=== PATIENT | male | born 1970 | race Caucasian/White ===

== ENCOUNTER 2017-09-13 05:24 | Observation (INO) ==
--- NOTE | 2017-09-12 12:45 | MH ---
cc: Apollo Luther MD DATE OF ADMISSION: 09/13/2017 DATE OF ADMISSION FOR SURGERY: 09/13/2017 ADMITTING DIAGNOSIS: Osteoarthritic degeneration of the right knee, now being admitted for right total knee arthroplasty. HISTORY OF PRESENT ILLNESS: This pleasant 47-year-old male is being admitted today for a right total knee arthroplasty due to severe painful osteoarthritic degeneration of the right knee. OTHER PAST MEDICAL HISTORY: He has had heart problems for which he has had stents put in and cardiac catheterization. He is currently taking Plavix, which was stopped 5 days before surgery. He also has a history of hypertension. REVIEW OF SYSTEMS: Noncontributory. FAMILY HISTORY: Noncontributory. MEDICATIONS: He takes atorvastatin, triamterene, ramipril, and metoprolol. SOCIAL HISTORY: He does not smoke and occasionally drinks alcohol. 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 ALLERGIES: ALLERGIC TO ORAL AND IV DYES. PHYSICAL EXAMINATION: GENERAL: We find a 47-year-old male, well-developed, well-nourished and oriented x 3, complaining of pain in his right knee. VITAL SIGNS: Blood pressure 144/82, pulse 64 and regular, respirations 16, temperature 98.2, pulse oximetry 97% on room air. EYES: PERRLA, EOMI. Ears, nose and throat are clear. NECK: Supple. LUNGS: Clear. HEART: Regular rate. ABDOMEN: Soft, positive bowel sounds, nontender. EXTREMITIES: Reveal the right knee to have genu valgus deformity of 10 degrees. Crepitance throughout range of motion. Neurovascularly intact to his toes. Antalgic gait. IMPRESSION: Severe painful osteoarthritic degeneration with valgus deformity, right knee. PLAN: Admission for right total knee arthroplasty today. The patient was given prescription for postoperative pain control in the office and plans on going home after the surgical stay in the hospital. MD MARYSOL Fournier/JANINA , 12:31 PM , 12:44 PM
[2017-09-13] MEDS ORDERED: Sodium Chlor 0.9% Inj 40 ML, Bupivacaine Liposo PF 1.3% Inj 20 ML P-ARTICULR SCH ×2 (06:45)
[2017-09-13] MEDS ORDERED: Metoprolol Tartrate 25 MG Tablet PO SCH (06:45)
[2017-09-13] MEDS ORDERED: Bupivacaine Liposomal PF 1.3% Inj 20 ML Vial ONE (06:52)
[2017-09-13] MEDS ORDERED: Sodium Chlor 0.9% Inj 250 ML ONE (06:53)
[2017-09-13] MEDS ORDERED: Vancomycin Inj 1 GM/200 ML PIGGYBACK IV.SIG SCH (07:00)
[2017-09-13] MEDS ORDERED: ceFAZolin 2 GM Premix Inj 2 GM/50 ML PIGGYBACK IV.SIG SCH (07:00)
[2017-09-13] MEDS ORDERED: TRANEXAMIC ACID IV.SIG SCH ×2 (07:00→09:59)
[2017-09-13] MEDS: Dexamethasone Inj 20 MG/5 ML Vial ONE ×2 (07:00→18:06)
[2017-09-13] MEDS ORDERED: Sodium Chlor 0.9% Inj 500 ML IV.SIG SCH (07:00)
[2017-09-13] MEDS ORDERED: SODIUM CHLOR 0.9% IV.SIG SCH ×2 (07:00→09:59)
[2017-09-13] MEDS ORDERED: Midazolam Inj 5 MG/ML 1 ML Vial IV.SIG SCH (07:00)
[2017-09-13] MEDS ORDERED: MULTIVIT MIN FOLIC VIT K LYCOP PO SCH (09:00)
[2017-09-13] MEDS: Bupivacaine PF 0.25% Inj 30 ML Vial ONE ×2 (09:15→18:07)
[2017-09-13] MEDS ORDERED: Bisacodyl 10 MG Supp RECTAL PRN (10:59)
[2017-09-13] MEDS ORDERED: Tranexamic Acid Inj 1,000 MG in Sodium Chlor 0.9% Inj 100 ML IV.SIG ONE (10:59)
[2017-09-13] MEDS ORDERED: Morphine Inj 4 MG/ML Vial IV.PUSH PRN (10:59)
[2017-09-13] MEDS ORDERED: Post-op Orders (for Pharmacy) OTHER STA (10:59)
--- NOTE | 2017-09-13 11:16 | MP ---
cc: Apollo Luther MD DATE OF OPERATION: 09/13/2017 PREOPERATIVE DIAGNOSIS: Osteoarthritic degeneration of valgus deformity, right knee. POSTOPERATIVE DIAGNOSIS: Osteoarthritic degeneration of valgus deformity, right knee. SURGERY PERFORMED: Right total knee arthroplasty using Consensus components, size 5 femur, 4 tibia, 10 insert and size 2 patella with 2 batches of DePuy cement. SURGEON: Apollo Luther MD ANESTHESIA: General intubation. MANAGER STATISTICAL PROGRAMMING: STEVE Butler DESCRIPTION OF PROCEDURE: After successful induction of anesthesia, the patient is placed on the operating room table in the supine position. The knee is prepped and draped in the usual manner. A tourniquet is inflated at the upper thigh and set to 300 mmHg pressure after exsanguination of the lower extremity. A longitudinal incision is made extending from 3 inches proximal to the superior pole of the patella, across the patella in longitudinal fashion, and down past the insertion of the tibial tubercle into the proximal tibia. The incision is carried down through subcutaneous tissue along the medial aspect of the patella and retinaculum, down through the capsule to expose the knee joint. The patella and patellar tendon are freed up enough to allow the patella to be inverted and retracted off the lateral side of the knee joint. The knee joint is left exposed. Small osteophytes are removed. All soft tissue is removed to allow proper position of the femoral and tibial cutting jig guide. The first femoral jig is then inserted along the distal end of the femur after first measuring to decide whether this is a small, medium, or large component. The notch is then drilled and the tibial cutting guide inserted into the femoral cutting guide, along with the ankle brace to allow for proper measurement of the tibial cutting surface that needed to be resected. Pins are inserted into the tibial cutting jig and femoral cutting jig to hold them in place. An oscillating saw is then used to resect the surface of the tibia. The surface of the tibia is then completely removed using sharp and blunt dissection. The anterior and posterior cuts of the femur are then made as well using an oscillating saw through the cutting guide. All guides are then removed and the varus/valgus angulation cutting guide applied to the femur for proper measurement of the proper amount of valgus. The anterior cutting guide for the femur is then inserted at the anterior femoral cuts made. Next, the first block trial is inserted into the femur to allow for proper condyle drill holes to be made which are then made followed by removal of the bone between the condyles using an oscillating saw as well as the bone removed at the most posterior surface of the condyle. After this, this guide is removed and the chamfer cuts made using the chamfer cutting guide from both anterior and posterior. Next, the femoral trial is then inserted, the tibial surface reflected anterior to expose the tibial surface and a tibial stem guide is inserted after first measuring for a standard, standard plus, large, or large plus surface to be used. After the stem is impacted the trial tibial surface is applied followed by the trial meniscal components. After full range of motion is found with the appropriate length meniscal components varying the patella is prepared by resecting the posterior aspect of the patella using an oscillating saw, inserting a trial. The trial is then removed and the cruciate cutting guide applied using the bur to cut the cruciate cuts. After cruciate cuts are made all trials are removed. The wound is irrigated copiously with antibiotic solution and Water Pik and the actual components inserted into place using the aforementioned components. After the cement has hardened and the components are found to have full range of motion with no instability, the tourniquet is deflated, total tourniquet time being 57 minutes at 300 mmHg pressure. The wound again is irrigated copiously with antibiotic solution, meticulous hemostasis achieved. Then, 120 mL of mixture of Exparel, normal saline and 0.25% Marcaine plain was instilled around the knee joint for extra pain control. Deep fascia proximally with running #2 Quill. Subcutaneous tissue approximated using interrupted running 2-0 and 4-0 Monocryl suture and Prineo dressing and knee immobilizer. No drain utilized. The patient tolerated the procedure well and left the operating room in satisfactory condition. ESTIMATED BLOOD LOSS: 100 mL. COUNTS: Sponge and suture counts were correct. COMPONENTS: The components used were Consensus components, size 5 femur, 4 tibia, 10 insert and size 2 patella with 2 batches of DePuy cement. STEVE Butler was present during the entire procedure to include the patient positioning and the procedure. The medical necessity of the nurse practitioner, financial planning assistant was indicated in this case due to the surgical complexity of the case itself. During the surgical case, the surgical aides teacher was working the back table while my rn medical surgical, STEVE was directly assisting me. JMD MARYSOL Syed/JANINA , 10:56 AM , 11:15 AM
[2017-09-13] MEDS ORDERED: fentaNYL Citrate Inj 100 MCG/2 ML Ampul ONE ×2 (11:19→11:20)
[2017-09-13] MEDS ORDERED: Neostigmine Inj 5 MG/5 ML Syringe IV.PUSH ONE (12:00)
[2017-09-13] MEDS ORDERED: Lidocaine PF 1% Inj 5 ML Syringe INFILTRATN ONE (12:00)
[2017-09-13] MEDS ORDERED: Glycopyrrolate Inj 1 MG/5 ML Syringe IV.PUSH ONE (12:00)
--- NOTE | 2017-09-13 12:17 | XR ---
EXAM DATE: 09/13/2017 12:14 PM EDT AGE/SEX: 47 years / Male INDICATIONS: Post op right total knee replacement. CLINICAL DATA: This is the patient's initial encounter. Patient reports that signs and symptoms have been present for 1 day and indicates a pain score of 0/10. MEDICAL/SURGICAL HISTORY: None. None. COMPARISON: No prior exams available for comparison. FINDINGS: 2 images from the OR have been submitted. There is a total knee prosthesis in place. The prosthetic c omponents are well placed. No fracture is seen. There is some air within the joint space which is an expected postoperative finding. CONCLUSION: Successful total knee replacement. Electronically signed by: Gopi Norman MD 09/13/2017 12:16 PM EDT
--- NOTE | 2017-09-13 14:35 | P.CON ---
History of Present Illness Service: [facility] Consult date: 09/13/17 Requesting Physician: Roxanne Luther Reason for Consult: Assist with Medical Management Primary Care Provider: No Primary Care Physician Family Provider: No Primary Care Physician Chief Complaint: Right Knee Pain History of Present Illness: Patient is a 47-year-old male with primary medical history of HTN, HLD, Afib, [place] , CAD with stent placements who came in the hospital for elective surgery by Dr. Luther. Patient underwent right total knee arthroplasty due to severe painful osteoarthritic degeneration of the right knee. Ambulated with PT, discomfort and pain RLE manageable. Denies SOB/ dyspnea. Denies chest pain, palpitations, headaches, dizziness. Denies fevers, chills, n/v/d. Denies hematuria, dysuria. Review of Systems All other systems reviewed negative except as stated in HPI [facility] - History History Provided By: Patient - Medical History Medical History: Medical History (Last Reviewed 09/13/17 @ 06:44 by Cheryl Edward) ACL injury tear Asthma Atrial fibrillation High cholesterol Hypertension Myocardial infarction - Surgical History Surgical History: Surgical History (Last Reviewed 09/13/17 @ 06:44 by Cheryl Edward) H/O arthroscopy of right knee H/O heart artery stent Hx of cardiac cath Hx of tympanostomy tubes - Family History Family History: Family History (Last Updated 09/13/17 @ 15:41 by STEVE Wilson) Other Family history of acute myocardial infarction Family history of diabetes mellitus Family history of hypertension - Tobacco History Second Hand Smoke Exposure: No Tobacco Use In Past 30 Days: No Smoking Status: Former smoker - Alcohol History How Often Do You Have a Drink Containing Alcohol: 2 to 3 times a week - Substance Use History Substance History: No History of Abuse - Travel History Recent Travel in the [place] Within the Last 8 Weeks: No Recent Travel Out of the Country Within the Last 8 Weeks: No Medications and Allergies Active Medications: Active Medications Hydrocodone Bitart/Acetaminophen (Coalgate 7.5/325) 1 tab PO Q4H PRN PRN Reason: PAIN LESS THAN 5 ON SCALE Hydrocodone Bitart/Acetaminophen (Coalgate 7.5/325) 2 tab PO Q6H PRN PRN Reason: PAIN SCALE 5 TO 10 Al Hydroxide/Mg Hydroxide (Milk Of Magnesia Liq) 30 ml PO BID PRN PRN Reason: Mild Constipation Atorvastatin Calcium (Lipitor) 80 mg PO DAILY [facility] Bisacodyl (Dulcolax Supp) 10 mg RECTAL DAILY PRN PRN Reason: SEVERE CONSITIPATION Tranexamic Acid 1,061 mg/ (Sodium Chloride) 110.61 mls @ 200 mls/hr IV.SIG ONCE [facility] Stop: 09/14/17 06:59 Last Admin: 09/13/17 08:45 Dose: 200 mls/hr Tranexamic Acid 1,061 mg/ (Sodium Chloride) 110.61 mls @ 200 mls/hr IV.SIG ONCE [facility] Stop: 09/14/17 09:58 Vancomycin/Sodium Chloride (Vancomycin Inj) 1 gm in 200 mls @ 200 mls/hr IV.SIG TIPPLE GREASER [facility] Stop: 09/17/17 06:59 Last Admin: 09/13/17 07:25 Dose: 200 mls/hr Cefazolin Sodium 1,000 mg/ (Sodium Chloride) 100 mls @ 200 mls/hr IV.SIG Q6H [facility] Stop: 09/14/17 02:29 Last Admin: 09/13/17 13:56 Dose: 200 mls/hr Lactated Ringer's (Lr 1000 Ml Inj) 1,000 mls @ 80 mls/hr IV.CONT .[id number] [facility] Last Admin: 09/13/17 11:45 Dose: 80 mls/hr Lactulose (Lactulose Liq) 30 ml PO DAILY PRN PRN Reason: SEVERE CONSITIPATION Metoprolol Succinate (Toprol Xl) 25 mg PO DAILY [facility] Metoprolol Tartrate (Lopressor) 25 mg PO TIPPLE GREASER [facility] Stop: 09/16/17 06:43 Last Admin: 09/13/17 07:21 Dose: Not Given Miscellaneous Information ([facility]) 1 each OTHER UNSCH PRN PRN Reason: SEE LABEL COMMENTS Stop: 09/14/17 11:20 Morphine Sulfate (Morphine Inj) 2 mg IV.PUSH Q3H PRN PRN Reason: BREAKTHROUGH PAIN Multivitamins/Minerals (Theragran-M) 1 tab PO BID [facility] Stop: 11/12/17 20:59 Ondansetron HCl (Zofran Odt) 4 mg PO Q6H PRN PRN Reason: NAUSEA OR VOMITING Ramipril (Altace) 10 mg PO BID [facility] Senna/Docusate Sodium (Mely-Colace) 1 tab PO BID [facility] Sennosides (Senokot) 17.2 mg PO BID PRN PRN Reason: Moderate Constipation Sodium Chloride (Ns Flush) 2 ml IV.FLUSH BID [facility] Sodium Chloride (Ns Flush) 2 ml IV.FLUSH PRN PRN PRN Reason: FLUSH AFTER USING IV ACCESS Triamterene/HCTZ (Maxzide 37.5 Mg-25 Mg) 1 tab PO DAILY [facility] Allergies Allergy/AdvReac Type Severity Reaction Status Date / Time Iodinated Contrast- Oral and Allergy Severe Flushing Verified 09/06/17 08:21 IV Dye [Contrast] Home Medications Medication Instructions Recorded Confirmed Type aspirin [Aspir-Low] 81 mg PO DAILY 09/06/17 09/13/17 History atorvastatin 80 mg PO DAILY 09/06/17 09/13/17 History clopidogrel 75 mg PO DAILY 09/06/17 09/13/17 History metoprolol succinate 25 mg PO DAILY 09/06/17 09/13/17 History qfavdtps-bep-amete-vit K-lycop 1 tab PO DAILY 09/06/17 09/13/17 History [Men's Multivitamin] ramipril 10 mg PO BID 09/06/17 09/13/17 History triamterene-hydrochlorothiazid 1 tab PO DAILY 09/06/17 09/13/17 History Physical Exam Vital signs: Vital Signs 09/13/17 06:04 09/13/17 06:26 09/13/17 08:15 Temperature 98.3 F Pulse Rate 52 L 56 L 57 L Respiratory Rate 18 22 Blood Pressure 155/90 H 125/78 Pulse Oximetry 99 98 96 09/13/17 08:18 09/13/17 11:15 09/13/17 11:30 Temperature 98.1 F Pulse Rate 53 L 60 52 L Respiratory Rate 16 16 Blood Pressure 119/69 116/59 L Pulse Oximetry 96 97 09/13/17 11:45 09/13/17 12:00 09/13/17 12:30 Temperature Pulse Rate 52 L 50 L 56 L Respiratory Rate 16 16 16 Blood Pressure 115/59 L 119/59 L 114/74 Pulse Oximetry 97 96 95 09/13/17 13:00 Temperature Pulse Rate 58 L Respiratory Rate 16 Blood Pressure 117/61 Pulse Oximetry Intake & Output 09/12/17 09/13/17 09/13/17 18:59 06:59 18:59 Intake Total 2300 / 2300 Output Total 225 / 225 Balance 2074 / 2074 Weight 106.1 kg Intake: Anesthesia Amount 2300 / 2300 Output: Urine 125 / 125 Estimated Blood Loss 100 / 100 Other: Weight On Admission 106.1 kg Narrative: GENERAL: This is a well-nourished, well-developed patient, in no apparent distress. SKIN: Warm and dry HEENT: Normocephalic. Pupils equal round and reactive. Nose without bleeding. Airway patent. NECK: Trachea midline. CARDIOVASCULAR: Regular rate and rhythm without murmurs, gallops, or rubs. RESPIRATORY: Clear to auscultation. Breath sounds equal bilaterally. No wheezes , rales, or rhonchi. GASTROINTESTINAL: Abdomen soft, non-tender, nondistended. Bowel Sounds normoactive x4. MUSCULOSKELETAL: Extremities without clubbing, cyanosis. RLE trace edema, sabas wrap. NEUROLOGICAL: Awake and alert. No focal neuro deficit. Moves all extremities. Normal speech. Assessment and Plan - Plan Patient is a 47-year-old male with primary medical history of HTN, HLD, Afib, [place] , CAD with stent placements who came in the hospital for elective surgery by Dr. Luther Right knee OA S/P Right Total Knee Arthroplasty, DR. Luther, 09/13/17 -Orthopedic surgeon following -Pain management with bowel regimen -PT eval and treat HTN HLD -Continue home medications ramipril, triamterene/HTZ, metoprolol -Monitor BP Trend CAD, stents placement 2011 Hx [place] Afib, chronic, rate controlled -On plavix/ ASA previously, held x 5 days prior to surgery -Will restart POD 1 -Monitor DVT prop Code Status: Full Code Discussed Condition With: Patient, nursing Discharge Planning: DC disposition by orthopedic sx
[2017-09-13] MEDS: Ramipril 5 MG Capsule PO SCH ×2 (16:48→21:10)
[2017-09-13] MEDS: Triamterene/HCTZ 37.5 MG/25 MG Tablet PO SCH (16:48)
[2017-09-13] MEDS: Senna/Docusate Sodium 8.6/50 MG Tablet PO SCH (21:10)
[2017-09-13] MEDS: Multivitamin/Minerals Therapeutic Tablet PO SCH (21:10)
[2017-09-14 07:32] LABS: Hematocrit 34.6 % (39.0-51.0)
[2017-09-14] MEDS: Multivitamin/Minerals Therapeutic Tablet PO SCH (08:23)
[2017-09-14] MEDS: Senna/Docusate Sodium 8.6/50 MG Tablet PO SCH (08:23)
[2017-09-14] MEDS: Triamterene/HCTZ 37.5 MG/25 MG Tablet PO SCH (08:23)
[2017-09-14] MEDS: Ramipril 5 MG Capsule PO SCH (08:24)
--- NOTE | 2017-09-14 12:03 | P.PNIM ---
Subjective Interval history: The patient was resting comfortably in bed. He says his pain is a 3 out of 10 in severity. He has been eating. He feels tightness in his right knee. He says the tape is a little bit bothersome. He has not had a bowel movement today. No acute concerns. Physical Exam Vital signs: Vital Signs 09/13/17 12:30 09/13/17 13:00 09/13/17 14:00 Temperature Pulse Rate 56 L 58 L 58 L Respiratory Rate 16 16 16 Blood Pressure 114/74 117/61 118/64 Pulse Oximetry 95 96 09/13/17 16:00 09/13/17 19:30 09/13/17 20:00 Temperature 97.8 F 98.6 F Pulse Rate 62 68 68 Respiratory Rate 16 18 20 Blood Pressure 124/72 137/77 131/65 Pulse Oximetry 96 96 95 09/14/17 00:00 09/14/17 07:00 09/14/17 08:00 Temperature 97.8 F 98.0 F 98.0 F Pulse Rate 68 61 61 Respiratory Rate 17 16 16 Blood Pressure 120/59 L 116/63 116/63 Pulse Oximetry 93 L 98 98 Intake & Output 09/13/17 09/14/17 09/14/17 18:59 06:59 18:59 Intake Total 3760 / 3760 1200 / 1200 Output Total 225 / 225 Balance 3535 / 3535 1200 / 1200 Weight 106.1 kg Intake: IV 1460 / 1460 1200 / 1200 LR 1000 mL Inj 1,000 ML @ 80 1000 / 1000 mls/hr IV.CONT .[id number] [facility] Rx# :[id number] LR 1000 mL Inj 1,000 ML @ 30 1000 / 1000 mls/hr IV.SIG .Q24H [facility] Rx#: [id number] Cyklokapron Inj 1,061 MG In NS 110 / 110 Inj 100 ML @ 200 mls/hr IV.SIG ONCE [facility] Rx#:[id number] Vancomycin Inj 1 gm In 200 ml @ 200 / 200 200 mls/hr IV.SIG [employer]IVER [employer]SPORT[employer] WORKER [facility] Rx#:[id number] Ancef 2 GM Premix Inj 2 gm In 50 / 50 50 ml @ 100 mls/hr IV.SIG [employer] WORKER PAZ Rx#:[id number] Ancef Inj 1,000 MG In NS Inj 100 / 100 200 / 200 100 ML @ 200 mls/hr IV.SIG Q6H [facility] Rx#:[id number] Anesthesia Amount 2300 / 2300 Output: Urine 125 / 125 Estimated Blood Loss 100 / 100 Other: # Voids 5 1 Date of Last Bowel Movement 09/12/17 09/12/17 09/12/17 Narrative: GENERAL: This is a well-nourished, well-developed patient, in no apparent distress. SKIN: Warm and dry. Incision on right anterior knee. HEENT: Normocephalic. Pupils equal round and reactive. Nose without bleeding. Airway patent. NECK: Trachea midline. CARDIOVASCULAR: Regular rate and rhythm without murmurs, gallops, or rubs. RESPIRATORY: Clear to auscultation. Breath sounds equal bilaterally. No wheezes , rales, or rhonchi. GASTROINTESTINAL: Abdomen soft, non-tender, nondistended. Bowel Sounds normoactive x4. MUSCULOSKELETAL: Extremities without clubbing, cyanosis. RLE trace edema, decreased ROM. NEUROLOGICAL: Awake and alert. No focal neuro deficit. Moves all extremities. Normal speech. Results - Labs CBC & Chem 7: 09/14/17 06:54 Laboratory Results - last 24 hr 09/14/17 06:54 Hgb 12.0 L Hct 34.6 L - Imaging Impressions Knee X-Ray 09/13/17 08:04 CONCLUSION: Successful total knee replacement. Assessment and Plan - Plan Patient is a 47-year-old male with primary medical history of HTN, HLD, Afib, [place] , CAD with stent placements who came in the hospital for elective surgery by Dr. Luther Right knee OA S/P Right Total Knee Arthroplasty, DR. Luther, 09/13/17 -Orthopedic surgeon following. Will likely be d/c with [facility]. -Pain management with bowel regimen -PT eval and treat HTN HLD -Continue home medications ramipril, triamterene/HTZ, metoprolol -Monitor BP Trend CAD, stents placement 2011 Hx [place] Afib, chronic, rate controlled -On plavix/ ASA previously, held x 5 days prior to surgery. Restarted 09/14. -Monitor DVT prop: Per surgery
--- NOTE | 2017-09-14 15:48 | P.DCO ---
- Physical Therapy Order: Evaluate and treat, Strength and gait training - Home Health Nursing Order: Nursing assessment with vital signs - Certification I have seen patient Scott Arteaga on 09/14/17. My clinical findings support the need for the requested home health care services because: High risk of falls I certify that my clinical findings support that this patient is homebound because: Post-op weakness, Unsteady gait/balance
--- NOTE | 2017-09-14 15:50 | P.PNOP ---
Subjective Interval history: Patient more comfortable today and ready to go home. Physical Exam Vital signs: Vital Signs 09/13/17 16:00 09/13/17 19:30 09/13/17 20:00 Temperature 97.8 F 98.6 F Pulse Rate 62 68 68 Respiratory Rate 16 18 20 Blood Pressure 124/72 137/77 131/65 Pulse Oximetry 96 96 95 09/14/17 00:00 09/14/17 07:00 09/14/17 08:00 Temperature 97.8 F 98.0 F 98.0 F Pulse Rate 68 61 61 Respiratory Rate 17 16 16 Blood Pressure 120/59 L 116/63 116/63 Pulse Oximetry 93 L 98 98 09/14/17 12:20 Temperature 98.2 F Pulse Rate 65 Respiratory Rate 18 Blood Pressure 127/61 Pulse Oximetry 98 Intake & Output 09/13/17 09/14/17 09/14/17 18:59 06:59 18:59 Intake Total 3760 / 3760 1200 / 1200 1000 / 1000 Output Total 225 / 225 Balance 3535 / 3535 1200 / 1200 1000 / 1000 Weight 106.1 kg Intake: IV 1460 / 1460 1200 / 1200 1000 / 1000 LR 1000 mL Inj 1,000 ML @ 80 1000 / 1000 1000 / 1000 mls/hr IV.CONT .[id number] [facility] Rx# :[id number] LR 1000 mL Inj 1,000 ML @ 30 1000 / 1000 mls/hr IV.SIG .Q24H [facility] Rx#: [id number] Cyklokapron Inj 1,061 MG In NS 110 / 110 Inj 100 ML @ 200 mls/hr IV.SIG ONCE [facility] Rx#:[id number] Vancomycin Inj 1 gm In 200 ml @ 200 / 200 200 mls/hr IV.SIG FACING BASTER [facility] Rx#:[id number] Ancef 2 GM Premix Inj 2 gm In 50 / 50 50 ml @ 100 mls/hr IV.SIG FACING BASTER [facility] Rx#:[id number] Ancef Inj 1,000 MG In NS Inj 100 / 100 200 / 200 100 ML @ 200 mls/hr IV.SIG Q6H [facility] Rx#:[id number] Anesthesia Amount 2300 / 2300 Output: Urine 125 / 125 Estimated Blood Loss 100 / 100 Other: # Voids 5 1 Date of Last Bowel Movement 09/12/17 09/12/17 09/12/17 - Constitutional no acute distress Results - Labs CBC & Chem 7: 09/14/17 06:54 Laboratory Results - last 24 hr 09/14/17 06:54 Hgb 12.0 L Hct 34.6 L Assessment and Plan - Problem List (1) Status post total right knee replacement using cement Code(s): Z96.651 - Presence of right artificial knee joint Status: Acute - Attending Attestation Attending Attestation: Dressing dry and intact. No calf tenderness. Negative Homans sign. In bed at present time. Neurovascularly intact toes. Plan is for patient to be discharged today with home health care and physical therapy. Patient has appointment for follow-up next week.
== END 2017-09-14 16:41 | disposition home health service (06) ==
LOC: HSDC 05:24 → HSDI 05:24 → N06 05:24
PROVIDERS: ADMIT Surgery; ATTEND Surgery